=== PATIENT | female | born 1945 | race African-American/Black ===

== ENCOUNTER 2021-10-16 20:18 | Inpatient (IN) | payer MEDICARE, MEDICAID ==
[~2021-10-16] VITALS: Ht 162.6 cm; Wt 95.8 kg
[2021-10-16] MEDS ORDERED: ACETAMINOPHEN 325MG TABLET PO STA (20:40)
[2021-10-16] MEDS ORDERED: PIPERACILLIN/TAZ 3.375G PREMIX 50 ML IV ONE (20:45)
[2021-10-16] MEDS ORDERED: VANCOMYCIN 1G PREMIX 200 ML IV ONE (20:45)
[2021-10-16] MEDS ORDERED: SODIUM CHLORIDE 0.9% 1000ML BAG (SEPSIS BOLUS) IV ONE (20:45)
[2021-10-16 21:14] LABS: HEMATOCRIT. 36.8 % (36.0-48.0); HEMOGLOBIN. 11.8 g/dL (12.0-16.0); MEAN CORPUSCULAR HEMOGLOBIN 26.6 pg (28.0-32.0); MEAN PLATELET VOLUME 8.5 fl (7.4-10.4); PLATELET 121 x1000/uL (130-400); RED BLOOD CELL COUNT 4.44 mill/uL (4.2-5.4); RED CELL DISTRIBUTION WIDTH 14.8 % (11.6-14.6)
[2021-10-16 21:23] LABS: CHLORIDE 105 mEq/L (98-107)
[2021-10-16 22:57] LABS: PLATELET ESTIMATE DECREASED
[2021-10-16 23:53] LABS: CLARITY URINE CLEAR (CLEAR); COLOR URINE YELLOW (YELLOW); KETONES URINE NEGATIVE (NEGATIVE); LEUKOCYTE ESTERASE URINE NEGATIVE (NEGATIVE); NITRITE URINE NEGATIVE (NEGATIVE); OCCULT BLOOD URINE NEGATIVE (NEGATIVE); PH URINE 8.5 (4.5-8.0); PROTEIN URINE TRACE (NEGATIVE); SPECIFIC GRAVITY URINE 1.009 (1.005-1.030)
[2021-10-17] MEDS ORDERED: SODIUM CHLORIDE 0.9% 1,000 ML IV SCH (00:15)
[2021-10-17] MEDS ORDERED: CLONIDINE 0.1MG TABLET PO PRN (00:15)
[2021-10-17] MEDS ORDERED: CEFTRIAXONE 1 G PREMIX 50 ML IV SCH (03:00)
[2021-10-17 06:10] VITALS: BP 119/74
[2021-10-17 08:00] VITALS: BP_SYST 125; BP_SYST 144; BP_DIAS 61; BP_DIAS 74
[2021-10-17] MEDS ORDERED: MAGNESIUM/ALUMINUM HYDROXIDE/SIMETHICONE 30ML UDC PO PRN (09:15)
[2021-10-17] MEDS ORDERED: DEXTROSE 50% WATER 50ML SYRINGE IV PRN ×2 (09:15)
[2021-10-17] MEDS ORDERED: ONDANSETRON HCL 4MG/2ML INJ IV PRN (09:15)
[2021-10-17] MEDS ORDERED: HYDROCODONE/ACETAMINOPHEN 5/325MG TABLET PO PRN (09:15)
[2021-10-17] MEDS ORDERED: NALOXONE HCL 0.4MG/ML VIAL IV PRN (09:45)
[2021-10-17] MEDS ORDERED: CEFTRIAXONE 1,000 MG in DEXTROSE 5% WATER 50 ML IV SCH (11:00)
[2021-10-17] MEDS: PANTOPRAZOLE SODIUM 40 MG/VIAL IV SCH (11:05)
[2021-10-17] MEDS: SODIUM CHLORIDE 0.9% 1,000 ML IV SCH (11:07)
[2021-10-17] MEDS: ENOXAPARIN 30MG/0.3ML SYR SUBCUT SCH ×2 (11:18→21:27)
[2021-10-17 12:00] VITALS: BP 140/81
[2021-10-17] MEDS ORDERED: OMEP20CA14 PO (12:00)
[2021-10-17] MEDS ORDERED: BIMA2.5D4 EACHEYE (12:05)
[2021-10-17] MEDS ORDERED: ASPI-1497 MT (12:05)
[2021-10-17] MEDS ORDERED: PRED5TAB MT (12:05)
[2021-10-17] MEDS ORDERED: NIFE90TA60 MT (12:05)
[2021-10-17] MEDS ORDERED: LOSA50TA41 MT (12:05)
[2021-10-17] MEDS ORDERED: CYCL10TA7 MT (12:05)
[2021-10-17] MEDS ORDERED: CYCL30DR EACHEYE (12:05)
[2021-10-17] MEDS ORDERED: POTA8CAP20 MT (12:05)
[2021-10-17] MEDS ORDERED: FURO40TA5 MT (12:05)
[2021-10-17] MEDS ORDERED: BLOOD SUGAR DIAGNOSTIC STRIP TEST SCH (12:20)
[2021-10-17] MEDS: ACETAMINOPHEN 325MG TABLET PO PRN ×2 (12:31→21:32)
[2021-10-17 16:00] VITALS: BP 158/68
[2021-10-17 20:00] VITALS: BP 138/57
[2021-10-17] MEDS: MEROPENEM 1,000 MG in SODIUM CHLORIDE 0.9% 100 ML IV SCH (21:27)
[2021-10-18] VITALS: BP 127/68
[2021-10-18] MEDS: SODIUM CHLORIDE 0.9% 1,000 ML IV SCH ×2 (01:19→17:57)
[2021-10-18 04:00] VITALS: BP 143/79
[2021-10-18] MEDS: MEROPENEM 1,000 MG in SODIUM CHLORIDE 0.9% 100 ML IV SCH ×2 (05:35→13:27)
[2021-10-18 08:00] VITALS: BP 140/87
[2021-10-18] MEDS: PANTOPRAZOLE SODIUM 40 MG/VIAL IV SCH (08:19)
[2021-10-18] MEDS: ENOXAPARIN 30MG/0.3ML SYR SUBCUT SCH (08:20)
[2021-10-18 09:41] LABS: HEMATOCRIT. 38.3 % (36.0-48.0); HEMOGLOBIN. 11.8 g/dL (12.0-16.0); MEAN CORPUSCULAR HEMOGLOBIN 26.5 pg (28.0-32.0); MEAN CORPUSCULAR VOLUME 85.6 fL (81.0-99.0); MEAN PLATELET VOLUME 8.9 fl (7.4-10.4); PLATELET 89 x1000/uL (130-400); RED BLOOD CELL COUNT 4.47 mill/uL (4.2-5.4); RED CELL DISTRIBUTION WIDTH 15.4 % (11.6-14.6)
[2021-10-18 09:48] LABS: CHLORIDE 117 mEq/L (98-107)
[2021-10-18 09:57] LABS: PHOSPHORUS 2.1 mg/dL (2.5-4.9)
[2021-10-18 12:00] VITALS: BP 129/78
[2021-10-18 14:09] LABS: PLATELET ESTIMATE DECREASED
[2021-10-18 16:00] VITALS: BP 162/86
[2021-10-18 20:00] VITALS: BP 152/80
[2021-10-18] MEDS ORDERED: CEFTRIAXONE 1,000 MG in DEXTROSE 5% WATER 50 ML IV SCH (21:00)
[2021-10-19] VITALS: BP 140/73
[2021-10-19 04:00] VITALS: BP 146/80
[2021-10-19 06:05] LABS: CHLORIDE 114 mEq/L (98-107)
[2021-10-19 06:15] LABS: GAMMA GLUTAMYL TRANSPEPTIDASE 30 IU/L (7-32); PHOSPHORUS 2.4 mg/dL (2.5-4.9)
[2021-10-19 08:00] VITALS: BP 139/71
[2021-10-19] MEDS: PANTOPRAZOLE SODIUM 40 MG/VIAL IV SCH (08:18)
[2021-10-19 08:23] LABS: BASOPHILS % 0.4 % (0.0-2.0); EOSINOPHILS % 1.7 % (0.0-5.0); HEMATOCRIT. 32.5 % (36.0-48.0); HEMOGLOBIN. 10.4 g/dL (12.0-16.0); LYMPHOCYTES % 15.4 % (20.0-50.0); MEAN CORPUSCULAR HEMOGLOBIN 26.5 pg (28.0-32.0); MEAN CORPUSCULAR VOLUME 82.5 fL (81.0-99.0); MEAN PLATELET VOLUME 10.8 fl (7.4-10.4); MONOCYTES % 6.1 % (2.0-8.0); NEUTROPHILS % 76.4 % (40.0-76.0); PLATELET 124 x1000/uL (130-400); RED BLOOD CELL COUNT 3.94 mill/uL (4.2-5.4); RED CELL DISTRIBUTION WIDTH 15.1 % (11.6-14.6)
[2021-10-19] MEDS: SODIUM CHLORIDE 0.9% 1,000 ML IV SCH (11:30)
[2021-10-19 12:00] VITALS: BP 139/86
[2021-10-19 13:06] VITALS: BP 139/86
[2021-10-19] MEDS ORDERED: LIDOCAINE HCL/PF 1% 10 MG/ML 5ML VIAL ONE (14:20)
[2021-10-19 15:46] VITALS: BP 168/91
[2021-10-19] MEDS ORDERED: CEFTRIAXONE 1,000 MG in DEXTROSE 5% WATER 50 ML IV NR (17:00)
== END 2021-10-19 18:04 | disposition home health service (06) | DRG 871 ==
LOC: ER 20:18 → 6WST 23:32
PROVIDERS: ADMIT Internal Medicine Nephrology; ATTEND Internal Medicine Nephrology
PROC: 02HV33Z Insertion of Infusion Device into Superior Vena Cava, Percutaneous Approach (ICD-10-PCS; principal; 2021-10-19)
PROC: B548ZZA Ultrasonography of Superior Vena Cava, Guidance (ICD-10-PCS; 2021-10-19)
DX: A41.51 Sepsis due to Escherichia coli [E. coli] (principal); G93.41 Metabolic encephalopathy; I42.9 Cardiomyopathy, unspecified; E11.9 Type 2 diabetes mellitus without complications; I11.0 Hypertensive heart disease with heart failure; I50.9 Heart failure, unspecified; R74.8 Abnormal levels of other serum enzymes; K43.9 Ventral hernia without obstruction or gangrene; Z20.822 Contact with and (suspected) exposure to COVID-19; K57.30 Diverticulosis of large intestine without perforation or abscess without bleeding; Z86.73 Personal history of transient ischemic attack (TIA), and cerebral infarction without residual deficits; Z87.440 Personal history of urinary (tract) infections; Z87.891 Personal history of nicotine dependence; Z90.411 Acquired partial absence of pancreas; Z90.49 Acquired absence of other specified parts of digestive tract; Z88.0 Allergy status to penicillin; Z88.5 Allergy status to narcotic agent; Z88.8 Allergy status to other drugs, medicaments and biological substances; Z79.899 Other long term (current) drug therapy; Z79.82 Long term (current) use of aspirin
CPT/HCPCS: 36415; 36573; 71045; 74176; 80048; 80053; 80076; 81003; 82248; 82962; 82977; 83036; 83605; 83735; 84100; 84145; 84484; 85025; 87077; 87186; 87426; 93005; 93970; 97162; 97535; 99291; C1725; C9113; J0696; J1650; J2185; J2543; J3370; J3490; J7030; J7050; J7060